=== PATIENT | male | born 1950 | race Caucasian/White ===

== ENCOUNTER 2020-09-19 05:47 | Day surgery (SDC) | payer MEDICARE, OTHER ==
[~2020-09-19] VITALS: Ht 167.6 cm; Wt 100.0 kg
[~2020-09-19 05:47] MED LIST: ACET500 PO; ASPI81CH PO; ASPI81EC PO; ATOR80 PO; CALCA500CH PO; CLOP75 PO; COQ1050 MG PO; Coenzyme Q10100 M1 PO; Crestor40 MG PO; HYDACE5325 PO; HYDCHL25 PO; HYDR1TAB94 PO; Hydrocodone-Ap1 EA23; METO50ER PO; MONT10T PO; NITR.4SL SL; PROP30DR BOTHEYES
[2020-09-19] MEDS ORDERED: EZET10 (06:50)
--- NOTE | 2020-09-19 12:57 | NUR ---
PT UP AND AMB TO [facility]TR WE[facility], DR CONSTANTINO IN TO CHECK ON HIM, OK TO DC, PT DRESSED, IV DC'D INTACT, CALLED AND PT WILL BE DC'D OUT IN WC WHEN ARRIVES
== END 2020-09-19 15:32 | disposition home or self-care (01) ==
LOC: MHTC 05:47
DX: I25.10 Atherosclerotic heart disease of native coronary artery without angina pectoris (principal); R94.39 Abnormal result of other cardiovascular function study; Z20.822 Contact with and (suspected) exposure to COVID-19; I10 Essential (primary) hypertension; I25.2 Old myocardial infarction; E78.5 Hyperlipidemia, unspecified; Z95.1 Presence of aortocoronary bypass graft
CPT/HCPCS: 76937; 93459; 99152; 99153; C1760; C1769; J0360; J1644; J2250; J3010; J7030; J7050; Q9967